=== PATIENT | male | born 1985 | race Caucasian/White ===

== ENCOUNTER 2016-08-18 23:38 | Emergency (ER) | payer SELFPAY ==
[2016-08-18] MEDS ORDERED: DIPHTH/TETANUS/ACEL PERTUSSIS (BOOSTER) 0.5 ML VIAL/PFS IM ONE (23:43)
[2016-08-19 00:08] LABS: I-STAT POTASSIUM 3.9 MMOL/L (3.5-4.9)
[2016-08-19 00:15] LABS: AUTOMATED NEUTROPHIL # 11.7 TH/MM3 (1.8-7.7); BASOPHIL # 0.1 TH/MM3 (0-0.2); BASOPHIL % 0.8 % (0.0-2.0); EOSINOPHIL # 0.4 TH/MM3 (0-0.4); EOSINOPHIL % 2.3 % (0.0-4.0); HEMATOCRIT 40.5 % (39.0-51.0); HEMO FLAGS DIFF FINAL; LYMPH % 18.4 % (9.0-44.0); LYMPHOCYTE # 3.1 TH/MM3 (1.0-4.8); MEAN CELL VOLUME 87.5 FL (80.0-100.0); MEAN CORPUSCULAR HEMOGLOBIN 30.3 PG (27.0-34.0); MEAN CORPUSCULAR HGB CONC 34.7 % (32.0-36.0); NEUT % 70.5 % (16.0-70.0); PLATELET COUNT 256 TH/MM3 (150-450); RED BLOOD COUNT 4.63 MIL/MM3 (4.50-5.90); RED CELL DISTRIBUTION WIDTH 13.5 % (11.6-17.2); WHITE BLOOD COUNT 16.7 TH/MM3 (4.0-11.0)
[2016-08-19 00:18] LABS: INTERNATIONAL NORMALIZED RATIO 0.9 RATIO; PROTHROMBIN TIME - PATIENT 10.3 SEC (9.8-11.6)
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
[2016-08-19] MEDS ORDERED: HYDROmorphone HCL PF 1 MG/ML VIAL ONE (00:29)
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
== END 2016-08-19 01:44 | disposition short-term general hospital (02) ==
LOC: EDBD 23:38 → NEPI 23:38
DX: S69.91XA Unspecified injury of right wrist, hand and finger(s), initial encounter (principal); S68.011A Complete traumatic metacarpophalangeal amputation of right thumb, initial encounter; S68.124A Partial traumatic metacarpophalangeal amputation of right ring finger, initial encounter; S61.411A Laceration without foreign body of right hand, initial encounter; S61.211A Laceration without foreign body of left index finger without damage to nail, initial encounter; Z23 Encounter for immunization; W39.XXXA Discharge of firework, initial encounter
CPT/HCPCS: 71010; 73120; 80307; 82435; 82565; 82947; 84132; 84295; 84520; 85025; 85610; 85730; 86850; 86900; 86901; 90471; 90715; 96360; 96374; 96375; 99284; 99291; J1170; G0390